=== PATIENT | female | born 1985 | race Caucasian/White ===

== ENCOUNTER 2017-01-23 03:13 | Inpatient (IN) | payer MEDICAID ==
[2017-01-23] MEDS ORDERED: LR 1,000 ML IV PRN (03:31)
[2017-01-23] MEDS ORDERED: OLIVE OIL 118 ML BTL MISC PRN (03:31)
[2017-01-23] MEDS ORDERED: LIDOCAINE 1% 30 ML SDV SC PRN (03:31)
[2017-01-23] MEDS ORDERED: TERBUTALINE SULFATE 1 MG/ML VIAL IV PRN (03:31)
[2017-01-23] MEDS ORDERED: OXYTOCIN/RINGERS LACTATE 1,000 ML IV PRN (03:31)
[2017-01-23] MEDS ORDERED: EPSOM SALT 454 GM TP PRN (03:31)
[2017-01-23] MEDS ORDERED: LIDOCAINE 1% 30 ML SDV SC ONE (04:15)
--- NOTE | 2017-01-23 04:18 | OBPROG ---
OBG Progress Note Assessment/Plan: Assessment:cat 1 fhr contractions q5-7 + bloody show coping well with contractions intermittant monitoring after cat 1 fhr 30 minue intial monitoring. cephalic presentation [id number]# 3/80/-2 Plan:expectant management of labor 01/23/17 04:16 Subjective: Rom at 0030. Contrctions regular at home intermittant here in labor and delivery. + bloody show. Clear fluid noted. - SVE Dilation (cm): 3 Effacement (%): 80 Station: -2 Current Contraction Pattern: Irregular FHR Pattern Variability: Moderate FHR Category: 1 Membranes: SROM Amniotic Fluid Color: Clear - Physical Exam General Appearance: WD/WN, alert, no apparent distress Respiratory: lungs clear, normal breath sounds Cardiac/Chest: regular rate, rhythm Abdomen: normal bowel sounds Membranes: SROM Amniotic Fluid Color: clear Extremities: normal range of motion, Jerry's sign (negative bilaterally) DTR- Lower Extremities: Knee (R): 1+, Knee (L): 1+ (negative clonus bilaterally) Skin: normal color, warm/dry Neuro/Psych: no motor/sensory deficits, alert, normal mood/affect, oriented x 3 ICD10 Worksheet Patient Problems: Problems Problem Status Onset Anemia due to blood loss Active Vaginal delivery Active Spontaneous onset of labor Acute
[2017-01-23] MEDS ORDERED: LIDOCAINE/BUPIVICAINE 10 ML SYR IV ONE (04:34)
[2017-01-23] MEDS ORDERED: LIDOCAINE 1% 30 ML SDV ONE (04:48)
[2017-01-23] MEDS ORDERED: OLIVE OIL 118 ML BTL ONE (04:48)
[2017-01-23] MEDS ORDERED: OXYTOCIN 10 UNIT/ML VIAL ONE (04:49)
[2017-01-23] MEDS ORDERED: TERBUTALINE SULFATE 1 MG/ML VIAL ONE (04:49)
[2017-01-23] MEDS ORDERED: AMMONIA AROMATIC 1 EACH AMP IH ONE (04:49)
[2017-01-23] MEDS ORDERED: MISOPROSTOL 200 MCG TAB ONE (04:50)
--- NOTE | 2017-01-23 05:03 | GHP ---
[f rep st] HISTORY AND PHYSICAL DATE OF ADMISSION: 01/23/2017 HISTORY OF PRESENT ILLNESS: The patient comes in on 01/23/2017 with complaints of rupture of membra chriss at 0030. States feeling positive movement. Leaking clear fluid. Contractions are anywhe re from 5-10 minutes apart. Previous exam in the office was 1-2 cm. On admit to Labor and Delivery , patient is 3, 80%, -2 station in cephalic. The patient is at 40-2/7 weeks gestational age. Patie nt is a 3, para 2. MEDICAL HISTORY: Benign. SURGICAL HISTORY: Two right ACL repairs. GYNECOLOGICAL HISTORY: Benign. ALLERGIES: The patient is allergic to Tdap. She gets a rash. FAMILY HISTORY: Father has elevated blood pressure and elevated cholesterol. HISTORY: Benign with other 2 pregnancies. With this , patient has ITP. Last pl atelet level was 128,000. Will check platelets today with IV placement. Will get CBC and a type an d screen. PHYSICAL ASSESSMENT: GENERAL: Patient is awake, alert, oriented x3. LUNGS: Clear bilaterally. A BDOMEN: Bowel sounds are positive in all 4 quadrants. Abdomen is soft on palpation. DTRs are 1+ b ilaterally. Clonus is negative. Homans sign is negative bilaterally. LABS: RPR is nonreactive. Gonorrhea and chlamydia are negative. Hepatitis B is negative. HIV is negative. Rubella is immune. GBS was negative. Previous platelets on 12/16/2016 were 138. Hemato crit was 38.9. PLAN OF CARE: 1. Patient is GBS negative. 2. Expectant management of labor. 3. Intermittent monitoring. 4. Consult physician as needed. /[id number]/MODL
[2017-01-23 05:21] LABS: % IMMATURE GRANULYOCYTES 0.9 % (0.0-1.1); ABSOLUTE IMMATURE GRANULOCYTES 0.08 10^3/uL (0.00-0.10); ADD DIFF? NO; ADD MORPH? NO; ADD SCAN? NO; ATYPICAL LYMPHOCYTE FLAG 0 (0-99); FRAGMENT RBC FLAG 0 (0-99); HEMATOCRIT 36.8 % (38.0-47.0); HEMOGLOBIN 12.9 g/dL (12.6-16.3); LEFT SHIFT FLG 0 (0-99); LIPEMIA HEMOLYSIS FLAG 90 (0-99); MEAN CELL HEMOGLOBIN 32.4 pg (27.9-34.1); MEAN CELL HEMOGLOBIN CONCENTR. 35.1 g/dL (32.4-36.7); MEAN CELL VOLUME 92.5 fL (81.5-99.8); MEAN PLATELET VOLUME 13.5 fL (8.7-11.7); PLATELET CLUMPS FLAG 10 (0-99); PLATELET COUNT 125 10^3/uL (150-400); RED BLOOD CELL COUNT 3.98 10^6/uL (4.18-5.33)
[2017-01-23] MEDS ORDERED: LR 500 ML IV PRN (07:36)
--- NOTE | 2017-01-23 07:42 | OBPROG ---
OBG Progress Note Assessment/Plan: Assessment: IUP at P2 at 40+ wks, SROM with prodromal ctxns clear fluid with GBS - plts 125K Plan: offered pit when desires if spont effective labor doesn't evolve 01/23/17 07:39 Subjective: Pt has discomfort with ctxns but infreq - q 10+ min. clear fluid. GFM, not wanting pit yet Objective: 01/23/17 04:15 Patient ABO/Rh O POSITIVE 01/23/17 04:15 Current Contraction Pattern: Irregular (q 10-14 min) FHR (bpm): 140 FHR Pattern Variability: Moderate FHR Category: 1 Membranes: SROM Amniotic Fluid Color: Clear ICD10 Worksheet Patient Problems: Problems Problem Status Onset SROM (spontaneous rupture of membranes) Acute
[2017-01-23] MEDS ORDERED: OXYTOCIN/RINGERS LACTATE 500 ML IV SCH (08:00)
[2017-01-23] MEDS ORDERED: fentaNYL 2MCG/ML/BUP 0.1% RTU 100 ML BAG EP ONE (10:54)
[2017-01-23] MEDS ORDERED: BUPIVACAINE 0.25% 30 ML SDV ONE (10:54)
[2017-01-23] MEDS ORDERED: PHENYLEPHRINE HCL 100 MCG/ML SYR ONE (10:55)
[2017-01-23] MEDS ORDERED: fentaNYL 100 MCG/2 ML INJ ONE (10:55)
[2017-01-23] MEDS ORDERED: PHENYLEPHRINE HCL 100 MCG/ML SYR IVP PRN (14:49)
[2017-01-23] MEDS ORDERED: ONDANSETRON 4 MG/2 ML VIAL IVP PRN (14:49)
[2017-01-23] MEDS ORDERED: DOCUSATE SODIUM 100 MG CAP PO PRN (14:53)
--- NOTE | 2017-01-23 14:54 | POSTANESTH ---
Post Anesthetic Evaluation Cardiovascular Status: Normal, Stable Respiratory Status: Normal, Stable, Similar to Pre-op Cond. Level of Consciousness/Mental Status: Can Participate in Eval, Alert and Oriented Pain Control: Adequate, Prn Tx Ordered Nausea/Vomiting Control: Adequate, Prn Tx Ordered Complications Possibly Related to Anesthesia: None Noted (Tolerated CSE well, stable, comfortable.)
--- NOTE | 2017-01-23 14:57 | OBPROC ---
- Labor and Delivery Onset of Contractions Date: 01/23/17 Onset of Contractions Time: 00:30 Onset of Contractions Type: Spontaneous Rupture of Membranes Date: 01/23/17 Rupture of Membranes Time: 00:30 Rupture of Membranes Type: Spontaneous Amniotic Fluid Color: Clear Dilation Complete Time: 14:05 Delivery Type: Spontaneous Placenta Delivery Date: 01/23/17 Placenta Delivery Time: 14:29 Episiotomy/Laceration: Other (Specify) (none) EBL: 300 Complications: Nuchal Cord (x1 loose and reduced) - Medications Labor Augmentation/Induction Meds Used: Pitocin Labor Augmentation/Induction Indication: Other (Specify) (protracted ctxns after GIOVANA) Anesthesia: Epidural - Info Infant A Delivery Date: 01/23/17 Delivery Time: 14:22 Sex of : Male (Ed) Score (1 Min): 8 Score (5 Min): 9
[2017-01-23] MEDS ORDERED: LR 500 ML IV SCH (15:00)
[2017-01-23] MEDS ORDERED: fentaNYL 2MCG/ML/BUP 0.1% RTU 100 ML EP SCH (15:00)
--- NOTE | 2017-01-23 15:00 | PREANESOB ---
Obstetric Pre-Anesthesia Info - General Info Proposed Procedure: Labor and delivery. : 3 Para: 2 WBD: 40 - Info Status: Full Term Monitors: External FHR Baseline (bpm): 130 FHR Pattern: Reassuring - Labor Status Cervical Dilation per last OB SVE: 3 Station per last OB SVE: -2 Amniotic Fluid Color: Clear Pitocin: Planned Indications for Labor Analgesia: Augmentation of Labor, Pain Control Labor Epidural: Proposed Anesthesia ROS: Prior knee surgery x 2. History of migraines. Prior labor epidural. Allergies/Adverse Reactions: Allergy/AdvReac Type Severity Reaction Status Date / Time pertussis vaccine,fluid Allergy Rash Verified 12/31/12 20:29 [Pertussis Vaccine,Fluid] Home Medications: Medication Instructions Recorded Herbals/Supplements -Info Only 1 each PO AD 12/31/12 Herbals/Supplements -Info Only 1 each PO AD 12/31/12 Vit27&Calcium/Iron/FA 1 each PO DAILY 12/31/12 [] Docosahexanoic Acid [Dha] 100 mg PO 01/23/17 Visit Medications: Generic Name Dose Route Start Last Admin Trade Name Kjq PRN Reason Stop Dose Admin Diphenhydramine HCl 25 - 50 mg 01/23/17 14:49 Benadryl Injection IVP 07/22/17 14:48 Q6HRS PRN Itching Docusate Sodium 100 mg 01/23/17 14:53 Colace PO 07/22/17 14:52 BID PRN Constipation Lactated Ringer's 1,000 mls @ 0 mls/hr 01/23/17 03:31 Lr IV 07/22/17 03:30 PRN PRN SEE PROTOCOL CONDITIONS Protocol Per Protocol Oxytocin/Lactated Ringer's 1,000 mls @ 150 mls/hr 01/23/17 03:31 Pitocin 20 Units/Lr (Premix) IV PRN PRN Post- bleeding Lactated Ringer's 500 mls @ 500 mls/hr 01/23/17 07:36 Lr IV PRN PRN Maternal Hypotension Oxytocin/Lactated Ringer's 500 mls @ 0 mls/hr 01/23/17 08:00 01/23/17 11:35 Pitocin 30 Units/Lr (Premix) IV 07/22/17 07:59 500 mls CONT HÉCTOR Administration Protocol Per Protocol Fentanyl/Bupivacaine HCl 100 mls @ 0 mls/hr 01/23/17 15:00 Fentanyl/Bupivacaine/Ns 2 Mcg/Ml 0.1% (Premix EP 02/02/17 14:59 CONT HÉCTOR Protocol As Directed Lactated Ringer's 500 mls @ 0 mls/hr 01/23/17 15:00 Lr IV 07/22/17 14:59 CONT HÉCTOR As Directed Ibuprofen 600 mg 01/23/17 03:31 Motrin PO 07/22/17 03:30 Q6HRS PRN post , inflammation Lidocaine HCl 30 ml 01/23/17 03:31 Lidocaine Hcl 1% SC 07/22/17 03:30 ONCE PRN Episiotomy Magnesium Sulfate 454 gm 01/23/17 03:31 Epsom Salt TP 07/22/17 03:30 PRN PRN perineal discomfort Rhodelia Oil 118 ml 01/23/17 03:31 Sweet Oil MISC 07/22/17 03:30 ONCE PRN preneal massage Ondansetron HCl 4 mg 01/23/17 14:49 Zofran IVP 07/22/17 14:48 Q4HRS PRN Nausea/Vomiting, Can't Take PO Phenylephrine HCl 100 mcg 01/23/17 14:49 Cristobal-Synephrine IVP 07/22/17 14:48 .Q2M PRN Hypotension Terbutaline Sulfate 0.25 mg 01/23/17 03:31 Brethine IV 07/22/17 03:30 ONCE PRN Tachysystole Discontinued Medications Generic Name Dose Route Start Last Admin Trade Name Freq PRN Reason Stop Dose Admin Ammonia (Aromatic Spirit) Confirm 01/23/17 04:49 Ammonia Aromatic Administered 01/23/17 04:50 Dose 1 each IH .STK-MED ONE Bupivacaine HCl Confirm 01/23/17 10:54 Sensorcaine 0.25% Sdv Administered 01/23/17 10:55 Dose 30 ml .ROUTE .STK-MED ONE Ephedrine Sulfate Confirm 01/23/17 04:49 Ephedrine Sulfate Administered 01/23/17 04:50 Dose 50 mg .ROUTE .STK-MED ONE Fentanyl Confirm 01/23/17 10:55 Sublimaze Administered 01/23/17 10:56 Dose 100 mcg .ROUTE .STK-MED ONE Fentanyl/Bupivacaine HCl Confirm 01/23/17 10:54 Fentanyl/Bupivacaine/Ns 2 Mcg/Ml 0.1% (Premix Administered 01/23/17 10:55 Dose 100 ml EP .STK-MED ONE Lidocaine HCl Confirm 01/23/17 04:48 Lidocaine Hcl 1% Administered 01/23/17 04:49 Dose 30 ml .ROUTE .STK-MED ONE Lidocaine HCl 10 ml 01/23/17 04:15 01/23/17 04:15 Lidocaine Hcl 1% SC 01/23/17 04:16 10 ml ONCE ONE Administration Misoprostol Confirm 01/23/17 04:50 Cytotec Administered 01/23/17 04:51 Dose 1,000 mcg .ROUTE .STK-MED ONE Rhodelia Oil Confirm 01/23/17 04:48 Sweet Oil Administered 01/23/17 04:49 Dose 118 ml .ROUTE .STK-MED ONE Oxytocin Confirm 01/23/17 04:49 Pitocin Administered 01/23/17 04:50 Dose 40 unit .ROUTE .STK-MED ONE Phenylephrine HCl Confirm 01/23/17 10:55 Cristobal-Synephrine Administered 01/23/17 10:56 Dose 1,000 mcg .ROUTE .STK-MED ONE Terbutaline Sulfate Confirm 01/23/17 04:49 Brethine Administered 01/23/17 04:50 Dose 1 mg .ROUTE .STK-MED ONE - Anesthesia History Response to Local Anesthetics: Normal Anesthesia & Operative History: No Prior Problems - Social History Substance Use/Abuse: Denies - Focused Exam Blood Pressure: 110/73 Heart Rate: 76 Respiratory Rate: 16 Height/Weight (Nursing): Height 162.56 cm Weight 75.296 kg Physical Exam: Within normal limits. ASA Status: II Labs: 01/23/17 04:15 Patient ABO/Rh O POSITIVE 01/23/17 04:15 - Plan Anesthetic Plan: CSE Consent Signed and on Chart: Yes Patient/Guardian Understands and Agrees to Plan: Yes
[2017-01-23 15:01] VITALS: RESP 16
[2017-01-23] MEDS: IBUPROFEN 600 MG TAB PO PRN ×2 (15:47→21:44)
[2017-01-24] MEDS: IBUPROFEN 600 MG TAB PO PRN ×4 (03:48→23:07)
--- NOTE | 2017-01-24 08:50 | SOAPPROG ---
SOAP Progress Note Assessment/Plan: Assessment: 31y/o day 1 s/p 01/23 Plan: Routine care Anticipate discharge home tmrw 01/2501/24/17 08:47 Subjective: Pt resting comfortably in bed with at bedside. Reports going well. Lochia light. Denies difficulty voiding. +flatus, denies BM. Denies feelings of depression/blues. Prefers to stay one more night as children at home are ill. Objective: Vital Signs Temp Pulse Resp BP Pulse Ox 36.2 C 68 16 120/79 97 01/24/17 08:16 01/24/17 08:16 01/24/17 08:16 01/24/17 08:16 01/24/17 08:16 Laboratory Results 01/24/17 03:55 01/23/17 01/24/17 01/25/17 05:59 05:59 05:59 Output Total 900 Balance -900 Physical Exam - Physical Exam General Appearance: alert, no apparent distress Respiratory: lungs clear, normal breath sounds Cardiac/Chest: regular rate, rhythm Abdomen: non-tender, soft, other (fundus firm @U) Skin: normal color, warm/dry Extremities: normal range of motion, non-tender Neuro/Psych: alert, normal mood/affect, oriented x 3 ICD10 Worksheet Patient Problems: Problems Problem Status Onset (spontaneous vaginal delivery) Acute
[2017-01-25] MEDS: IBUPROFEN 600 MG TAB PO PRN ×2 (04:55→10:57)
[2017-01-25 08:04] VITALS: BP 96/59; PULSE 70; TEMP 98.5; O2SAT 95
--- NOTE | 2017-01-25 10:11 | SOAPPROG ---
SOAP Progress Note Assessment/Plan: Assessment: ppd# 2 s/p breast feeding uncomplicated post course sore nipples Plan: routine post care and discharge care apno 01/25/17 10:08 Subjective: patient is doing well. pain is well controlled. breast feeding is going well except nipples are very sore. desires to have apno called in. normal lochia. denies headache and changes in vision. was up a lot last night due to complication of sons circumcision. he is doing well. now. ready to go home. Objective: Vital Signs Temp Pulse Resp BP Pulse Ox 36.9 C 70 16 96/59 L 95 01/25/17 08:04 01/25/17 08:04 01/25/17 08:04 01/25/17 08:04 01/25/17 08:04 Laboratory Results 01/24/17 03:55 01/24/17 01/25/17 01/26/17 05:59 05:59 05:59 Output Total 900 Balance -900 Physical Exam - Physical Exam General Appearance: WD/WN, alert, no apparent distress Respiratory: chest non-tender, lungs clear, normal breath sounds Cardiac/Chest: normal peripheral pulses, regular rate, rhythm Abdomen: normal bowel sounds, non-tender, soft, other (fundus firm and non tender) Skin: normal color, warm/dry Extremities: normal range of motion, non-tender, normal inspection, normal capillary refill Neuro/Psych: no motor/sensory deficits, alert, normal mood/affect, oriented x 3 ICD10 Worksheet Patient Problems: Problems Problem Status Onset (spontaneous vaginal delivery) Acute
[2017-01-25] MEDS ORDERED: IRON POLYSAC/IRON HEME 28 MG TAB PO SCH (10:30)
== END 2017-01-25 14:45 | disposition home or self-care (01) | DRG 775 ==
LOC: FLD 03:13 → OBSVTOIN 03:31 → FOB 17:59
PROVIDERS: ADMIT Advanced Practice Midwife; ATTEND Obstetrics & Gynecology
PROC: 3E033VJ Introduction of Other Hormone into Peripheral Vein, Percutaneous Approach (ICD-10-PCS; principal; 2017-01-23)
PROC: 10E0XZZ Delivery of Products of Conception, External Approach (ICD-10-PCS; principal; 2017-01-23)
DX: O48.0 Post-term pregnancy (principal); Z3A.40 40 weeks gestation of pregnancy; Z37.0 Single live birth; O69.81X0 Labor and delivery complicated by cord around neck, without compression, not applicable or unspecified
CPT/HCPCS: J2370; J2590; J3010; J3105

== ENCOUNTER → 2018-12-16 | Outpatient (CLI) | payer MEDICAID | LOC: FIMAGING 13:13 | PROVIDERS: ATTEND Obstetrics & Gynecology | DX: O09.522 Supervision of elderly multigravida, second trimester (principal); O99.419 Diseases of the circulatory system complicating pregnancy, unspecified trimester; Z3A.20 20 weeks gestation of pregnancy ==

== ENCOUNTER → 2019-01-09 | Outpatient (CLI) | payer MEDICAID | LOC: FIMAGING 09:06 | PROVIDERS: ATTEND Obstetrics & Gynecology | DX: Z36.3 Encounter for antenatal screening for malformations (principal); Z3A.23 23 weeks gestation of pregnancy; Z82.49 Family history of ischemic heart disease and other diseases of the circulatory system ==